=== PATIENT | female | born 1970 | race Caucasian/White ===

== ENCOUNTER 2017-08-17 16:54 | Emergency (ER) | payer OTHER ==
[~2017-08-17] VITALS: Ht 167.6 cm; Wt 65.8 kg
[2017-08-17 16:58] VITALS: BP 120/79
[2017-08-21 11:27] LABS: Hepatitis B Surface Antibody Positive
== END 2017-08-17 18:09 | disposition home or self-care (01) ==
LOC: ER 16:54
DX: S61.230A Puncture wound without foreign body of right index finger without damage to nail, initial encounter (principal); W22.8XXA Striking against or struck by other objects, initial encounter; Y93.89 Activity, other specified; Y92.89 Other specified places as the place of occurrence of the external cause; Y99.8 Other external cause status
CPT/HCPCS: 36415; 86703; 86706; 86803; 87340